=== PATIENT | female | born 1990 | race Caucasian/White ===

== ENCOUNTER 2019-12-26 04:23 | Day surgery (SDC) | payer OTHER ==
[2019-12-25 13:20] VITALS: BMI 27.4
[2019-12-26 09:36] LABS: HEMATOCRIT 40.4 % (32.4-45.2); HEMOGLOBIN 13.5 GM/dL (10.7-15.3); MCH 31.1 pg (25.7-33.7); MCHC 33.5 g/dl (32.0-36.0); MEAN CELL VOLUME 92.7 fl (80-96); MEAN PLT VOLUME 10.7 fl (7.5-11.1); PLATELET COUNT 179 K/MM3 (134-434); RBC 4.35 M/mm3 (3.60-5.2); RDW 12.9 % (11.6-15.6); WHITE BLOOD COUNT 7.3 K/mm3 (4.0-10.0)
[2019-12-26] MEDS ORDERED: PROPOFOL 20 ML ONE (12:10)
[2019-12-26] MEDS ORDERED: MIDAZOLAM HCL 2 MG/2 ML SINGLE DOSE VIAL ONE ×2 (12:10→12:36)
[2019-12-26] MEDS ORDERED: DEXAMETHASONE SOD PHOSPHATE 4 MG/1 ML VIAL ONE (12:11)
[2019-12-26] MEDS ORDERED: ceFAZolin SODIUM 1 GM VIAL IVPB ONE (12:40)
[2019-12-26] MEDS ORDERED: ceFAZolin SODIUM 1 GM VIAL ONE (12:41)
[2019-12-26] MEDS ORDERED: ONDANSETRON 4 MG/2 ML VIAL IVPUSH PRN (13:01)
[2019-12-26] MEDS ORDERED: oxyCODONE HCL 5 MG TABLET PO PRN (13:01)
[2019-12-26] MEDS ORDERED: KETOROLAC TROMETHAMINE 30 MG/1 ML VIAL IVPUSH ONE (13:02)
--- NOTE | 2019-12-26 13:28 | OP ---
Operative Note - Note: Operative Date: 12/26/19 Pre-Operative Diagnosis: missed ab Operation: Suction D&C Post-Operative Diagnosis: Same as Pre-op Surgeon: Obed Edmond Anesthesia: MAC Specimens Removed: POC Operative Report Dictated: Yes
--- NOTE | 2019-12-26 13:30 | DS ---
Physical Examination Vital Signs: Vital Signs Temperature 98.6 F 12/26/19 12:53 Pulse Rate 88 12/26/19 13:05 Respiratory Rate 16 12/26/19 13:05 Blood Pressure 103/55 L 12/26/19 13:05 O2 Sat by Pulse Oximetry (%) 100 12/26/19 13:05 Constitutional: Yes: Well Nourished, No Distress, Calm Eyes: Yes: WNL, Conjunctiva Clear, EOM Intact HENT: Yes: WNL, Atraumatic, Normocephalic Neck: Yes: WNL, Supple, Trachea Midline Cardiovascular: Yes: WNL, Regular Rate and Rhythm Respiratory: Yes: WNL, Regular, CTA Bilaterally Gastrointestinal: Yes: WNL, Normal Bowel Sounds Musculoskeletal: Yes: WNL Extremities: Yes: WNL Edema: No Integumentary: Yes: WNL Neurological: Yes: WNL, Alert, Oriented ...Motor Strength: WNL Psychiatric: Yes: WNL Labs: CBC, BMP 12/26/19 09:04 Discharge Summary Problems reviewed: Yes Reason For Visit: MISSED Procedures: Principal: suction D&C Hospital Course: good Condition: Good - Instructions Diet, Activity, Other Instructions: Dr. Edmond [employer] TECHNICIAN discharge instructions Physical activity: Resume your normal everyday activity as tolerated no heavy lifting or exercise until seen by your surgeon. You may walk unlimited amounts and climb stairs. You may resume driving the car when you feel safe and comfortable behind the wheel. Wound care: If you have a bandage, leave it on, and keep dry for 48 hours. After that time discard the outer bandage. If they are tapes on the skin under the outer of bandage leave them in place. They will peel off in the next 7 to 10 days. Do Not Peel them off. If there are tapes present on the skin, you may shower over them. Diet: There are no dietary restrictions. Eat healthy, high-fiber foods. Drink 6 to 8 glasses of liquid each day. This will assist in keeping your bowels are regular. Pain management: You may take Tylenol or acetaminophen or Ibuprofen (for example, Motrin, Advil etc.) every 6 hours as needed for pain. Call Dr. Edmond for any of the following: * Severe pain not relieved by medication * Fever of 101 or higher * Excessive bleeding or drainage on dressing Call the office at [phone] for an appointment in seven to 10 days. - Home Medications Comprehensive Discharge Medication List: Ambulatory Orders NK [No Known Home Medication] 12/25/19
[2019-12-26 15:36] VITALS: BP 114/63; PULSE 100; TEMP 97.8
--- NOTE | 2019-12-27 13:35 | OP ---
DATE OF OPERATION: DATE OF DICTATION: 12/26/2019 PREOPERATIVE DIAGNOSIS: Missed . POSTOPERATIVE DIAGNOSIS: Missed . PROCDURE: Suction, dilation and curettage. SURGEON: Micky Edmond MD ANESTHESIA: MAC. ANESTHESIOLOGIST: Teto Jain MD PROCEDURE FINDINGS: Under very light general anesthesia patient was examined. Uterus was found to be anteverted about 8-week size. Routine prep and drape was carried out. Cervix was grasped with tenaculum and gently dilated with minimal resistance. Suction curette No. 9 was used and products of conception were removed. Sharp curettage was then carried out and alternated with suction curettage until cavity was empty. Patient was given 1 g of Ancef preoperatively and Pitocin during the surgery. Surgery went uneventfully. Patient was then awakened and transferred to the PACU comfortable and stable. MICKY EDMOND MD [id number]
--- NOTE | 2019-12-28 19:12 | PATH ---
Surgical Pathology Report Patient Name: BONNIE GOMEZ Med. Rec. #: [id number] /Age/Gender: 1990 (Age: 29) / F Account: [id number] Location: [facility] SUR[facility]ICAL Taken: 12/26/2019 Received: 12/26/2019 Reported: 12/28/2019 Physicians: Obed Edmond MD Specimen(s) Received PRODUCTS OF CONCEPTION Clinical History Missed Final Diagnosis PRODUCTS OF CONCEPTION, SUCTION DILATION AND CURETTAGE: IMMATURE CHORIONIC VILLI, DECIDUA, AND GESTATIONAL ENDOMETRIUM CONSISTENT WITH PRODUCTS OF CONCEPTION. Electronically Signed Kaylie Beltre M.D. Gross Description Received in formalin labeled "products of conception," is an 8.0 x 6.0 x 0.7 centimeter aggregate of rey red soft tissue fragments. Villous tissue is identified. No somatic tissue is identified. A hotel services sales representative portion is submitted in one cassette. /12/26/2019 saudi/12/26/2019
== END 2019-12-26 15:40 | disposition home or self-care (01) ==
LOC: JASU-SURG 04:23
PROVIDERS: ATTEND Specialist
PROC: 10D17Z9 Manual Extraction of Products of Conception, Retained, Via Natural or Artificial Opening (ICD-10-PCS; principal; 2019-12-26 11:00)
DX: O02.1 Missed abortion (principal)
CPT/HCPCS: 36415; 85027; 86850; 86900; 86901; 86922; 88305-TC; 94760

== ENCOUNTER 2024-09-26 16:43 | Inpatient (IN) | payer OTHER ==
[2024-09-26 17:37] VITALS: BMI 35.1
[2024-09-26] MEDS ORDERED: OXYTOCIN 30 UNITS in 0.9% NS 30 UNIT/500 ML INFUS.BAG IVPB ONE (18:25)
[2024-09-26] MEDS: OXYTOCIN 30 UNITS in 0.9% NS 30 UNIT/500 ML INFUS.BAG IVPB SCH (18:30)
[2024-09-26 19:58] LABS: BASOPHILS # 0.04 x10^3/uL (0.01-0.08); EOSINOPHIL % 0.9 % (0.7-5.8); HEMOGLOBIN 10.6 g/dL (11.2-15.7)
[2024-09-26 19:59] LABS: ABSOLUTE IMMATURE GRANULOCYTES 0.07 x10^3/uL (0.0-0.031); EOSINOPHILS # 0.07 x10^3/uL (0.04-0.36); HEMATOCRIT 33.1 % (34.1-44.9); MEAN CELL VOLUME 90.7 fl (79.4-94.8); MEAN PLT VOLUME 13.2 fl (9.4-12.3); MONOCYTE # 0.66 x10^3/uL (0.24-0.86); MONOCYTE % 8.1 % (4.7-12.5); PLATELET COUNT 109 x10^3/uL (182-369); RDW 13.8 % (12.1-16.8)
[2024-09-26 20:09] LABS: INR 0.91 (0.83-1.09)
[2024-09-26 20:11] LABS: ACTIVATED PTT 22.4 SECONDS (25.2-36.5)
[2024-09-26 20:22] LABS: HCV DIAGNOSTIC IN-HOUSE W/RFLX NON-REACTIVE (NONREACTIVE)
[2024-09-26 20:37] LABS: POTASSIUM 3.9 mmol/L (3.5-5.1)
[2024-09-26 20:39] LABS: BLOOD UREA NITROGEN 7.8 mg/dL (7-18); CALCIUM 9.1 mg/dL (8.5-10.1)
[2024-09-26] MEDS: ELECTROLYTE-148 SOLN 1,000 ML IV SCH (21:25)
[2024-09-26] MEDS ORDERED: FENTANYL/BUPIVACAINE/NS/PF - PCEA - 50 ML DISP.SYRIN EP ONE (22:20)
[2024-09-26] MEDS ORDERED: NALOXONE HCL 0.4 MG/ML VIAL IVPUSH PRN (22:31)
[2024-09-26] MEDS: FENTANYL/BUPIVACAINE/NS/PF - PCEA - 50 ML DISP.SYRIN EP SCH (23:00)
[2024-09-27 00:31] LABS: HIV INTERPRETATION NEGATIVE (NEGATIVE)
[2024-09-27] MEDS ORDERED: FENTANYL/BUPIVACAINE/NS/PF - PCEA - 50 ML DISP.SYRIN EP ONE ×2 (01:56→04:19)
[2024-09-27] MEDS ORDERED: LIDOCAINE HCL 1% PRESERVATIVE FREE - 30ML VIAL ONE (05:29)
[2024-09-27] MEDS ORDERED: OXYTOCIN 20 UNITS in 0.9% NS 20 UNIT/1,000 ML INFUS.BAG IV ONE (05:29)
[2024-09-27] MEDS: OXYTOCIN 20 UNITS in 0.9% NS 20 UNIT/1,000 ML INFUS.BAG IV SCH (05:54)
[2024-09-27] MEDS ORDERED: BISACODYL 10 MG SUPP.RECT RC PRN (06:07)
[2024-09-27] MEDS ORDERED: METHYLERGONOVINE MALEATE 0.2 MG/1 ML AMP IM PRN (06:07)
[2024-09-27] MEDS ORDERED: BENZOCAINE 28 GM HEMORRHOIDAL OINTMENT TP PRN (06:07)
[2024-09-27] MEDS ORDERED: IBUPROFEN 600 MG TABLET (FP) PO ONE (06:51)
[2024-09-27] MEDS: IBUPROFEN 600 MG TABLET (FP) PO PRN (06:55)
[2024-09-27] MEDS ORDERED: oxyCODONE HCL 5 MG TABLET ONE (07:58)
[2024-09-27] MEDS: oxyCODONE HCL 5 MG TABLET PO PRN (08:00)
[2024-09-27] MEDS: ACETAMINOPHEN 325 MG TABLET (FP) PO PRN (13:14)
[2024-09-28 07:38] LABS: ABSOLUTE IMMATURE GRANULOCYTES 0.09 x10^3/uL (0.0-0.031); BASOPHILS # 0.07 x10^3/uL (0.01-0.08); EOSINOPHIL % 1.9 % (0.7-5.8); HEMATOCRIT 29.4 % (34.1-44.9); HEMOGLOBIN 9.4 g/dL (11.2-15.7); MEAN CELL VOLUME 92.5 fl (79.4-94.8); MEAN PLT VOLUME 13.5 fl (9.4-12.3); MONOCYTE % 7.8 % (4.7-12.5); PLATELET COUNT 109 x10^3/uL (182-369)
[2024-09-28 09:26] VITALS: RESP 18
[2024-09-28] MEDS: BENZOCAINE 20% 57 GM BOTTLE TP PRN (09:42)
[2024-09-28] MEDS: FERROUS SO4 325 MG TABLET (FP) PO SCH (09:51)
[2024-09-28] MEDS: WITCH HAZEL 50% (TUCKS) 40 PAD/JAR PAD TP PRN (09:51)
[2024-09-28] MEDS ORDERED: SENNOSIDES/DOCUSATE COMBO (SENNA PLUS) TABLET (UD) PO PRN (22:00)
[2024-09-29 13:10] VITALS: BP 128/80; PULSE 85; TEMP 98.2
== END 2024-09-29 13:00 | disposition home or self-care (01) | DRG 560 ==
LOC: JLDR 16:43 → J3W 09-27 08:20
PROVIDERS: ADMIT Specialist; ATTEND Specialist
PROC: 10E0XZZ Delivery of Products of Conception, External Approach (ICD-10-PCS; principal; 2024-09-27)
DX: O80 Encounter for full-term uncomplicated delivery (principal); Z3A.39 39 weeks gestation of pregnancy; Z37.0 Single live birth
CPT/HCPCS: 36415; 59409; 80048; 85025; 85610; 85730; 86780; 86803; 86850; 86900; 86901; 87389